=== PATIENT | female | born 1935 ===

== ENCOUNTER 2017-01-22 16:08 | Outpatient (RCR) | payer MEDICARE | END 2017-01-23 | disposition home or self-care (01) | LOC: WCC 16:08 | DX: L89.620 Pressure ulcer of left heel, unstageable (principal); L03.116 Cellulitis of left lower limb; F03.90 Unspecified dementia, unspecified severity, without behavioral disturbance, psychotic disturbance, mood disturbance, and anxiety; I11.9 Hypertensive heart disease without heart failure; E11.9 Type 2 diabetes mellitus without complications; Z95.0 Presence of cardiac pacemaker | CPT/HCPCS: 10060 ==

== ENCOUNTER 2017-01-29 10:29 | Outpatient (CLI) | payer MEDICARE ==
--- NOTE | 2017-01-30 15:42 | Diagnostic Imaging Report ---
Indication: Left heel blister/wound Technique: IV administration 24.3 mCi 99M technetium MDP. Flow, blood pool, and static images obtained over the feet Comparison: No plain films are available for comparison Findings: Flow images demonstrate strikingly increased activity in the region of the left heel. Similarly, increased blood pool activity is seen in the same region. Normal flow and blood pool activity are seen on the right. On the static images, increased activity is seen in the region of the calcaneal tuberosity. No abnormal increased uptake is seen elsewhere in the left foot or in the right foot. Impression: Increased flow, blood pool, and static activity in the region of the calcaneal tuberosity of the left foot. Findings are suspicious for acute osteomyelitis Findings discussed by phone with referring physician Anuradha Guillen at 1535 on 01/30/2017
== END 2017-01-29 12:29 | disposition home or self-care (01) ==
LOC: NUM 10:29
DX: M86.9 Osteomyelitis, unspecified (principal)
CPT/HCPCS: 78315; A4641